=== PATIENT | male | born 1945 | race Caucasian/White ===

== ENCOUNTER 2016-10-09 20:55 | Inpatient (IN) | payer OTHER, MEDICAID ==
[~2016-10-09] VITALS: Ht 167.6 cm; Wt 108.2 kg
[2016-10-09 21:25] VITALS: BP 174/78; PULSE 67; RESP 20; Ht 167.6 cm; Wt 108.2 kg
[2016-10-09 21:34] VITALS: PULSE 69
[2016-10-10] VITALS (15 sets, daily range): BP systolic 126–164; BP diastolic 60–76; PULSE 50–67; RESP 18–20
[2016-10-10] MEDS ORDERED: BISACODYL (EC) 5 MG TAB PO PRN (02:00)
[2016-10-10] MEDS: FAMOTIDINE 20 MG TAB PO SCH ×3 (02:00→20:50)
[2016-10-10] MEDS ORDERED: ACETAMINOPHEN 325 MG TAB PO PRN (02:00)
[2016-10-10] MEDS ORDERED: ONDANSETRON 4 MG INJ IV PRN (02:00)
[2016-10-10] MEDS ORDERED: DOCUSATE SODIUM 100 MG CAP PO PRN (02:00)
[2016-10-10] MEDS ORDERED: NACL 0.9% 3 ML SYG IV SCH (02:00)
[2016-10-10 04:22] LABS: ADD SCAN DIFF NO
[2016-10-10 04:27] LABS: BASOPHILS % 0.1 % (0.0-2.0); HEMATOCRIT 39.4 % (42.0-52.0); HEMOGLOBIN 12.9 g/dl (14.0-18.0); LYMPHOCYTES # 0.6 10^3/ul (0.8-2.9); LYMPHOCYTES % 6.2 % (15.0-51.0); MEAN CORPUSCULAR HEMOGLOBIN 30.1 pg (29.0-33.0); MEAN CORPUSCULAR HGB CONC 32.7 g/dl (32.0-37.0); MEAN CORPUSCULAR VOLUME 91.8 fl (82.0-101.0); MEAN PLATELET VOLUME 11.7 fl (7.4-10.4); MONOCYTE # 0.1 10^3/ul (0.3-0.9); MONOCYTES % 0.8 % (0.0-11.0); NEUTROPHIL # 9.4 10^3/ul (1.6-7.5); NEUTROPHILS % 92.5 % (39.0-77.0); PLATELET COUNT 153 10^3/UL (140-415); RED BLOOD COUNT 4.29 10^6/ul (4.70-6.10); RED CELL DISTRIBUTION WIDTH 13.4 % (11.5-14.5); WHITE BLOOD COUNT 10.2 10^3/ul (4.8-10.8)
[2016-10-10] MEDS: ALBUTEROL/IPRATROPIUM (NEB) 3 ML AMP HHN SCH ×5 (05:00→20:59)
[2016-10-10 05:06] LABS: ALBUMIN 3.9 g/dl (3.3-4.9); ALBUMIN/GLOBULIN RATIO 1.34; CALCIUM 9.3 mg/dl (8.4-10.2); CREATININE 0.56 mg/dl (0.61-1.24); POTASSIUM 4.4 mmol/L (3.5-5.1); TOTAL PROTEIN 6.8 g/dl (6.1-8.1)
[2016-10-10 05:07] LABS: TROPONIN-I 0.017 ng/ml (0.00-0.12)
[2016-10-10 05:08] LABS: CK-MB 1.09 ng/ml (0.0-2.4)
[2016-10-10] MEDS ORDERED: FUROSEMIDE 40 MG INJ IV SCH (06:00)
--- NOTE | 2016-10-10 06:33 | HP ---
Date/Time of Note Date/Time of Note DATE: 10/10/16 TIME: 06:15 Assessment/Plan VTE Prophylaxis VTE Prophylaxis Intervention: LMWH Lines/Catheters IV Catheter Type (from [facility]): [place] [employer] line still needed: No Urinary Cath still in place: No Assessment/Plan Chief Complaint/Hosp Course This is a 71-year-old male being admitted to the telemetry floor for: #1 acute respiratory distress: CHF versus COPD. At the current time the patient's BNP is 329 I am not entirely convinced that this is an acute new onset CHF exacerbation however as there is blunting of the costophrenic angles we will do CHF workup. He did receive a dose of Lasix at the transferring facility. I will put him on Lasix 40 mg twice daily for today monitor I's and O 's. I will also give him duonebs every 4 hours. He did receive apparently a bolus dose of steroids at the facility. At the current time as I do appreciate good air movement and no wheezing, I will hold off on any further prednisone at this current time. Echocardiogram will be ordered. And cardiology consult. #2 COPD: DuoNeb every 4 hours. Supplemental oxygen to maintain O2 sats above 90. Reinstitute home medications once patient provide us with his home medication list #3 diabetes mellitus: Patient is not on any insulin. Will put on a insulin sliding scale. Check a hemoglobin A1c.Reinstitute home medications once patient provide us with his home medication list #4 BPH: Stable.Reinstitute home medications once patient provide us with his home medication list #5 sleep apnea: I have asked him to obtain the settings were CPAP so that we can provide him this overnight. #6 DVT and GI prophylaxis: Lovenox, H2 blockers Further management as per the clinical course Problems: HPI/ROS Admit Date/Time Admit Date/Time October 09, 2016 at 21:12 Hx of Present Illness This is a 8-year-old male who was transferred from [facility]. Patient has a history of COPD, hypertension, hyperlipidemia who presented to [facility] on 10/09/16 at 11:52 AM for worsening dyspnea for the last 3-4 days. His dyspnea was gradual in onset with a cough. Denied any fevers or chills or chest pain or lower extremity swelling. He was using albuterol at home but was not helping. Denied any sick contacts and he did not have any recent travel. Allergies: NKDA Medications: Patient does not recall his medication at this time he will obtain the medications for us. PMH/Family/Social Past Medical History COPD, hypertension, diabetes mellitus [id number], BPH, sleep apnea Past Surgical History Neck cyst removal Family History Significant Family History: diabetes (Mom), hypertension (Mom) Social History Alcohol Use: other (He did use alcohol in the past however he has not drank for over 21 years) Smoking Status: Former smoker (2 packs per day 50 years he quit 3 months ago) Drug Use: none Exam/Review of Systems Vital Signs Vitals Vital Signs Date Time Temp Pulse Resp B/P Pulse Ox O2 Delivery O2 Flow Rate FiO2 10/10/16 04:42 98.5 57 18 156/71 99 10/09/16 21:25 Room Air 10/09/16 21:25 2.0 Exam Exam General: Patient sitting in bed without his supplemental oxygen and in some mild distress. Upon putting the nasal cannula back on patient appeared more comfortable. The patient is alert oriented -3 HEENT: Atraumatic, normocephalic. The pupils are equal, round and reactive. Extraocular motor are intact Neck: Supple with full range of motion. No rigidity or meningismus Chest: Nontender Lungs: Clear to auscultation bilaterally, increased work of breathing, not requiring use of accessory muscles, coarse breath sounds at the bases, good aeration Heart: Normal S1-S2, Regular rhythm and rate. Abdomen: Soft , nontender, nondistended , bowel sounds are present. No guarding no rebound tenderness , No masses or organomegaly. No costovertebral temporal angle mass Extremities: Normal to inspection, no edema no cyanosis Neurologic: Normal mental status, speech normal, cranial nerves II through XII are intact, motor and sensory are intact, no focal weakness Additional Comments Patient's BMP at the outside facility: Showed sodium of 138, potassium of 4.5, chloride 102, CO2 27, BUN 14, creatinine 0.67, GFR of 97, calcium 9.1, and glucose of 141. BNP was 326. Initial troponin was negative 1. Chest x-ray Showed blunting of the costophrenic angles. Please see radiology report for further information Labs Result Diagram: 10/10/16 0335 10/10/16 0333 Medications Medications Current Medications Ondansetron HCl (Zofran Inj) 4 mg Q6H PRN IV NAUSEA AND/OR VOMITING; Start 10/10 at 02:00 Acetaminophen (Tylenol Tab) 650 mg Q6H PRN PO PAIN LEVEL 1-3 OR FEVER; Start at 02:00 Docusate Sodium (Colace) 100 mg Q12H PRN PO CONSTIPATION; Start 10/10/16 at 02: 00 Bisacodyl (Dulcolax) 5 mg DAILY PRN PO CONSTIPATION; Start 10/10/16 at 02:00 Famotidine (Pepcid) 20 mg Q12 PO ; Start 10/10/16 at 02:00 Enoxaparin Sodium (Lovenox) 40 mg DAILY SC ; Start 10/10/16 at 09:00 Diagnostic Test (Pha) (Accu-Chek) 1 ea 02 XX ; Start 10/11/16 at 02:00 LIZETH KAMARA October 10, 2016 06:31
[2016-10-10] MEDS ORDERED: GLUCAGON 1 MG INJ IM PRN (07:00)
[2016-10-10] MEDS ORDERED: GLUCOSE GEL 15 GRAM TUBE PO PRN ×2 (07:00)
[2016-10-10] MEDS ORDERED: DEXTROSE 50% 50 ML SYRINGE IV PRN ×2 (07:00)
[2016-10-10] MEDS ORDERED: GLUCOSE GEL 15 GRAM TUBE BUCCAL PRN (07:00)
[2016-10-10] MEDS ORDERED: INSULIN ASPART [NOVOLOG] 3 ML PEN SC SCH (08:00)
[2016-10-10] MEDS: ENOXAPARIN 40 MG/0.4 ML SYG SC SCH (08:29)
[2016-10-10] MEDS: INSULIN ASPART [NOVOLOG] 3 ML PEN SC SCH ×4 (08:30→21:06)
[2016-10-10 10:07] LABS: CHOL/HDL RATIO 3.1 RATIO
[2016-10-10 10:21] LABS: CREATINE KINASE 82 IU/L (23-200)
[2016-10-10 10:33] LABS: CK-MB 1.19 ng/ml (0.0-2.4)
[2016-10-10 10:37] LABS: TROPONIN-I < 0.012 ng/ml (0.00-0.12)
--- NOTE | 2016-10-10 11:15 | CONS ---
Date/Time of Note Date/Time of Note DATE: 10/10/16 TIME: 11:10 Assessment/Plan Assessment/Plan Additional Assessment/Plan Assessment recommendations; 1. Patient admitted for shortness of breath ; possibly could be multifactorial possibly from underlying sleep apnea versus COPD versus CHF. Obtain ABG, obtain a 2D echocardiogram, obtain a chest x-ray. Meanwhile continue current treatment. Once these studies are done I will reevaluate the patient. Consultation Date/Type/Reason Admit Date/Time October 09, 2016 at 21:12 Date of Consultation: October 10, 2016 Type of Consultation: Pulmonary Reason for Consultation Pulmonary consultation obtained for evaluation of shortness of breath. History presenting any; patient is a pleasant 71-year-old white male who was transferred from another hospital where he presented to the ER with complaints of shortness of breath going on for the last several days which is brought on mainly by exertion. Patient also been having scant cough without any sputum production. Patient also did complain of some wheezing earlier with interval resolution. The patient this is his first admission to the hospital. He denies any underlying coronary artery disease. Or any history of congestive heart failure. He denies any depression, high fever, chills. Any body aches or myalgias. Past medical history; 1. History of COPD possibly 2. Diabetes. 3. Questionable CHF. 4. BPH. 5. Diabetes. 6. No history of any surgeries. Medications; were reviewed. Allergies; none. Social history; patient quit smoking 3 months ago has a [id number]-ljro-year smoking history. Most of alcohol abuse. Family history; patient is single. 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 Review of systems; denies any headache, visual changes, sinus symptoms. Any seizures. Denies any sore throat, dysphagia, odynophagia. Any chest pain, angina. Breath or dyspnea on exertion. Complains of occasional wheezing. Complains of very scant cough. Denies any sputum production hemoptysis. Denies any abdominal pain, nausea vomiting. Any melena, hematochezia. Does complain of urgency of urination. Does complain of snoring, daytime sleepiness. Has gained weight. Denies any skin changes. General exam; elderly male, awake alert currently in no distress. Social History Alcohol Use: other (He did use alcohol in the past however he has not drank for over 21 years) Smoking Status: Former smoker (2 packs per day 50 years he quit 3 months ago) Drug Use: none Exam/Review of Systems Vital Signs Vitals Vital Signs Date Time Temp Pulse Resp B/P Pulse Ox O2 Delivery O2 Flow Rate FiO2 10/10/16 09:00 54 145/65 10/10/16 08:37 20 99 Nasal Cannula 1.0 10/10/16 08:02 98.2 Intake and Output 10/09/16 10/09/16 10/10/16 15:00 23:00 07:00 Intake Total 500 ml Output Total 350 ml Balance 150 ml Exam HEENT exam is; supple neck, JVD difficult to see because of short neck. Patient bilateral intraocular lens implants. He is edentulous. Pharynx is clear. No neck bruits. No thyromegaly. Chest examination; diminished but clear vessel. No added sound. S1-S2 audible , no murmurs. Regular rhythm. Abdomen examination; protuberant, nontender. No organomegaly. Bowel sounds audible. Extremity examination; no peripheral edema. Pulses 1+ bilaterally. No clubbing. [employer] examination; cranial nerves are intact. No focal deficit. Results Result Diagram: 10/10/16 0335 10/10/16 0333 Results 24 hrs Laboratory Tests Test 10/10/16 03:33 10/10/16 03:35 10/10/16 08:01 10/10/16 09:50 Sodium Level 134 L Potassium Level 4.4 Chloride Level 101 Carbon Dioxide Level 27 Anion Gap 10 Blood Urea Nitrogen 19 Creatinine 0.56 L Glucose Level 193 Calcium Level 9.3 Total Bilirubin 1.0 Direct Bilirubin 0.00 Indirect Bilirubin 1.0 Aspartate Amino Transf (AST/SGOT) 19 Alanine Aminotransferase (ALT/SGPT) 23 Alkaline Phosphatase 59 Total Protein 6.8 Albumin 3.9 Globulin 2.90 Albumin/Globulin Ratio 1.34 Triglycerides Level 61 Cholesterol Level 161 LDL Cholesterol, Calculated 98 HDL Cholesterol 51 Cholesterol/HDL Ratio 3.1 Free Thyroxine Index 2.79 Thyroxine (T4) 9.0 Triiodothyronine (T3) Uptake 31.0 White Blood Count 10.2 Red Blood Count 4.29 L Hemoglobin 12.9 L Hematocrit 39.4 L Mean Corpuscular Volume 91.8 Mean Corpuscular Hemoglobin 30.1 Mean Corpuscular Hemoglobin Concent 32.7 Red Cell Distribution Width 13.4 Platelet Count 153 Mean Platelet Volume 11.7 H Neutrophils % 92.5 H Lymphocytes % 6.2 L Monocytes % 0.8 Eosinophils % 0.0 Basophils % 0.1 Nucleated Red Blood Cells % 0.0 Neutrophils # 9.4 H Lymphocytes # 0.6 L Monocytes # 0.1 L Eosinophils # 0.0 Basophils # 0.0 Nucleated Red Blood Cells # 0.0 Hemoglobin A1c 6.1 H Creatine Kinase 85 82 Creatine Kinase Index 1.3 1.5 Creatinine Kinase MB (Mass) 1.09 1.19 Troponin I 0.017 < 0.012 Thyroid Stimulating Hormone (TSH) 0.658 Bedside Glucose 153 Medications Medications Current Medications Ondansetron HCl (Zofran Inj) 4 mg Q6H PRN IV NAUSEA AND/OR VOMITING; Start 10/10 at 02:00 Acetaminophen (Tylenol Tab) 650 mg Q6H PRN PO PAIN LEVEL 1-3 OR FEVER; Start at 02:00 Docusate Sodium (Colace) 100 mg Q12H PRN PO CONSTIPATION; Start 10/10/16 at 02: 00 Bisacodyl (Dulcolax) 5 mg DAILY PRN PO CONSTIPATION; Start 10/10/16 at 02:00 Famotidine (Pepcid) 20 mg Q12 PO Last administered on 10/10/16 08:24; Admin Dose 20 MG; Start 10/10/16 at 02:00 Enoxaparin Sodium (Lovenox) 40 mg DAILY SC Last administered on 10/10/16 08:29 ; Admin Dose 40 MG; Start 10/10/16 at 09:00 Diagnostic Test (Pha) (Accu-Chek) 1 ea 02 XX ; Start 10/11/16 at 02:00 Miscellaneous Information 1 ea NOTE XX ; Start 10/10/16 at 07:00 Glucose (Glutose) 15 gm Q15M PRN PO DECREASED GLUCOSE; Start 10/10/16 at 07:00 Glucose (Glutose) 22.5 gm Q15M PRN PO DECREASED GLUCOSE; Start 10/10/16 at 07:00 Dextrose (D50w Syringe) 25 ml Q15M PRN IV DECREASED GLUCOSE; Start 10/10/16 at 07:00 Dextrose (D50w Syringe) 50 ml Q15M PRN IV DECREASED GLUCOSE; Start 10/10/16 at 07:00 Glucagon (Glucagen) 1 mg Q15M PRN IM DECREASED GLUCOSE; Start 10/10/16 at 07:00 Glucose (Glutose) 15 gm Q15M PRN BUCCAL DECREASED GLUCOSE; Start 10/10/16 at 07: 00 TERESA BRENNAN October 10, 2016 11:15
--- NOTE | 2016-10-10 11:25 | CONS ---
Date/Time of Note Date/Time of Note DATE: 10/10/16 TIME: 11:20 Assessment/Plan Assessment/Plan Additional Assessment/Plan Shortness of breath COPD Hypertension Obesity -Patient with no significant volume overload on examination with no edema and no crackles on lung exam. Serial cardiac enzymes with no significant abnormalities. Will check echocardiogram. Would change diuretics to daily at the current time. Symptoms appear more likely secondary to primary pulmonary etiology. Consultation Date/Type/Reason Admit Date/Time October 09, 2016 at 21:12 Type of Consultation: cv Reason for Consultation Shortness of breath Hx of Present Illness This is a 71-year-old male with past medical history of hypertension, COPD who presents with worsening shortness of breath. Patient with symptoms progressing over the past 2-3 years but worse over the past month. Symptoms of shortness of breath or with exertion and improved at rest. He denies lower extremity edema, chest pain, dizziness, palpitations. He recently had GI illness of diarrhea last week and since then his shortness of breath has worsened. He does complain of cough which is minimally productive. Because of worsening symptoms yesterday, he went to the emergency room for evaluation and care. He was transferred to our facility secondary to insurance reasons. 12 point review of systems was performed with all pertinent positives and negatives mentioned above and all else is negative Past Medical History COPD Medical History: hypertension Past Surgical History Past Surgical Hx: no surgical history Family History Significant Family History: no pertinent family hx Social History Alcohol Use: other (He did use alcohol in the past however he has not drank for over 21 years) Smoking Status: Former smoker (2 packs per day 50 years he quit 3 months ago) Drug Use: none Other Social History [facility] Exam/Review of Systems Vital Signs Vitals Vital Signs Date Time Temp Pulse Resp B/P Pulse Ox O2 Delivery O2 Flow Rate FiO2 10/10/16 09:00 54 145/65 10/10/16 08:37 20 99 Nasal Cannula 1.0 10/10/16 08:02 98.2 Intake and Output 10/09/16 10/09/16 10/10/16 15:00 23:00 07:00 Intake Total 500 ml Output Total 350 ml Balance 150 ml Exam Sitting up in bed, no apparent distress Constitutional: alert, obese, oriented Head: normocephalic Neck: supple Respiratory: other (Coarse, distant breath sounds, no wheezing) Cardiovascular: other (S1-S2 heard), regular rate and rhythm Gastrointestinal: bowel sounds, non-tender, other (No guarding), soft Extremities: other (No edema or cyanosis) Results Result Diagram: 10/10/16 0335 10/10/16 0333 Results 24 hrs Laboratory Tests Test 10/10/16 03:33 10/10/16 03:35 10/10/16 08:01 10/10/16 09:50 Sodium Level 134 L Potassium Level 4.4 Chloride Level 101 Carbon Dioxide Level 27 Anion Gap 10 Blood Urea Nitrogen 19 Creatinine 0.56 L Glucose Level 193 Calcium Level 9.3 Total Bilirubin 1.0 Direct Bilirubin 0.00 Indirect Bilirubin 1.0 Aspartate Amino Transf (AST/SGOT) 19 Alanine Aminotransferase (ALT/SGPT) 23 Alkaline Phosphatase 59 Total Protein 6.8 Albumin 3.9 Globulin 2.90 Albumin/Globulin Ratio 1.34 Triglycerides Level 61 Cholesterol Level 161 LDL Cholesterol, Calculated 98 HDL Cholesterol 51 Cholesterol/HDL Ratio 3.1 Free Thyroxine Index 2.79 Thyroxine (T4) 9.0 Triiodothyronine (T3) Uptake 31.0 White Blood Count 10.2 Red Blood Count 4.29 L Hemoglobin 12.9 L Hematocrit 39.4 L Mean Corpuscular Volume 91.8 Mean Corpuscular Hemoglobin 30.1 Mean Corpuscular Hemoglobin Concent 32.7 Red Cell Distribution Width 13.4 Platelet Count 153 Mean Platelet Volume 11.7 H Neutrophils % 92.5 H Lymphocytes % 6.2 L Monocytes % 0.8 Eosinophils % 0.0 Basophils % 0.1 Nucleated Red Blood Cells % 0.0 Neutrophils # 9.4 H Lymphocytes # 0.6 L Monocytes # 0.1 L Eosinophils # 0.0 Basophils # 0.0 Nucleated Red Blood Cells # 0.0 Hemoglobin A1c 6.1 H Creatine Kinase 85 82 Creatine Kinase Index 1.3 1.5 Creatinine Kinase MB (Mass) 1.09 1.19 Troponin I 0.017 < 0.012 Thyroid Stimulating Hormone (TSH) 0.658 Bedside Glucose 153 Medications Medications Current Medications Ondansetron HCl (Zofran Inj) 4 mg Q6H PRN IV NAUSEA AND/OR VOMITING; Start 10/10 at 02:00 Acetaminophen (Tylenol Tab) 650 mg Q6H PRN PO PAIN LEVEL 1-3 OR FEVER; Start at 02:00 Docusate Sodium (Colace) 100 mg Q12H PRN PO CONSTIPATION; Start 10/10/16 at 02: 00 Bisacodyl (Dulcolax) 5 mg DAILY PRN PO CONSTIPATION; Start 10/10/16 at 02:00 Famotidine (Pepcid) 20 mg Q12 PO Last administered on 10/10/16 08:24; Admin Dose 20 MG; Start 10/10/16 at 02:00 Enoxaparin Sodium (Lovenox) 40 mg DAILY SC Last administered on 10/10/16 08:29 ; Admin Dose 40 MG; Start 10/10/16 at 09:00 Diagnostic Test (Pha) (Accu-Chek) 1 ea 02 XX ; Start 10/11/16 at 02:00 Miscellaneous Information 1 ea NOTE XX ; Start 10/10/16 at 07:00 Glucose (Glutose) 15 gm Q15M PRN PO DECREASED GLUCOSE; Start 10/10/16 at 07:00 Glucose (Glutose) 22.5 gm Q15M PRN PO DECREASED GLUCOSE; Start 10/10/16 at 07:00 Dextrose (D50w Syringe) 25 ml Q15M PRN IV DECREASED GLUCOSE; Start 10/10/16 at 07:00 Dextrose (D50w Syringe) 50 ml Q15M PRN IV DECREASED GLUCOSE; Start 10/10/16 at 07:00 Glucagon (Glucagen) 1 mg Q15M PRN IM DECREASED GLUCOSE; Start 10/10/16 at 07:00 Glucose (Glutose) 15 gm Q15M PRN BUCCAL DECREASED GLUCOSE; Start 10/10/16 at 07: 00 Procedures Procedures ECG done yesterday at 1201 100 sinus rhythm at 61 bpm, QRS 118 ms, nonspecific STT wave abnormalities Khang Ba DO October 10, 2016 11:25
[2016-10-10 11:57] LABS: Allen Test ACCEPTAB; Arterial Base Excess 1.7 mmol/L (-3.0-3); Arterial COHb 0.5 % (0.0-3.0); Arterial Fraction of Oxyhgb 96.7 % (93.0-99.0); Arterial MetHb 0.2 % (0.0-1.5); Arterial Total Hemglobin 14.1 g/dl (12.0-18.0); MODE NASAL CANNULA
[2016-10-10] MEDS: AMLODIPINE 5 MG TAB PO SCH (12:17)
--- NOTE | 2016-10-10 13:17 | RADRPT ---
Echocardiogram Report Patient Name: ANÍBAL TIJERINA Gender: Male Date: 1945 Study Date: 10-Oct-2016 Spot Remover: [facility] Location: 5555 Ref. Physician: LIZETH KAMARA Quality: Good Procedures: Transthoracic echocardiogram with complete 2D, M-Mode, and doppler examination. Indications: new onset Atrial Fibrillation. 2D/M Mode Doppler Measurement Value Normal Ranges Measurement Value Normal Ranges LVIDd 2D 5.8 3.5 - 5.6 cm AV Peak Zak 1.5 m/sec LVIDs 2D 2.8 2.1 - 4.1 cm AV Peak PG 9.0 mmHg FS 2D 52.0 % LVOT Peak Zak 0.9 m/sec LVPWd 2D 1.0 0.6 - 1.1 cm LVOT Peak PG 3.0 mmHg IVSd 2D 1.0 0.6 - 1.1 cm MV E Peak Zak 0.9 m/sec IVS/LVPW 2D 1.0 MV A Peak Zak 0.5 m/sec AoR Diam 2D 2.8 2.0 - 3.7 cm MV E/A 1.8 LA/Ao 2D 2 0 - 1 MV Decel Time 232 msec EDV 2D 198.0 cm3 MV E/A 1.8 ESV 2D 22.0 cm3 TR Peak Zak 1.9 m/sec LA Dimen 2D 4.2 2.3 - 4.0 cm TR Peak PG 14.0 mmHg RVSP 29.0 mmHg Findings Left Ventricle: Normal left ventricular systolic function. Normal left ventricular cavity size. Normal left ventricular wall thickness. Ejection fraction is visually estimated at 60 %. Tissue Doppler/Mitral Doppler indices are consistent with pseudonormalization with mildly elevated left atrial pressure (Stage II diastolic dysfunction). Right Ventricle: Normal right ventricular size. Normal right ventricular systolic function. Left Atrium: There is mild enlargement of left atrium. Right Atrium: The right atrium is normal in size. Mitral Valve: Mitral valve leaflets appear mildly thickened. Mild mitral annular calcification. Mild mitral valve regurgitation. Aortic Valve: Normal appearance of the aortic valve. No significant aortic stenosis or insufficiency. Tricuspid Valve: Normal appearance of the tricuspid valve. Estimated peak PA systolic pressure 29 mmHg. There is trace tricuspid regurgitation. Pulmonic Valve: Normal pulmonic valve appearance. Pericardium: Normal pericardium with no significant pericardial effusion. Aorta: Normal aortic root. IVC: Dilated IVC without respiratory collapse consistent with elevated right atrial pressure. Conclusions 1.Normal left ventricular systolic function. Normal left ventricular cavity size. Normal left ventricular wall thickness. Ejection fraction is visually estimated at 60 %. Tissue Doppler/Mitral Doppler indices are consistent with pseudonormalization with mildly elevated left atrial pressure (Stage II diastolic dysfunction). 2.Normal right ventricular size. Normal right ventricular systolic function. 3.There is mild enlargement of left atrium. 4.The right atrium is normal in size. 5.Mild mitral valve regurgitation. 6.No significant valvular stenosis or regurgitation seen of remaining visualized valves. 7.Normal pericardium with no significant pericardial effusion. Electronically Signed By: Khang Ba 10-Oct-2016 13:16:27 -0700 Patient Name: ANÍBAL TIJERINA Study Date: 10-Oct-2016 [id number]
--- NOTE | 2016-10-10 18:01 | RADRPT ---
PROCEDURE: XR Chest. CLINICAL INDICATION: Shortness of breath. TECHNIQUE: Single frontal view. COMPARISON: None. FINDINGS: There is mild atelectasis at the lung bases. The lungs are otherwise clear. The heart is enlarged. There is calcification in the aorta consistent with atherosclerosis. There is no pleural effusion. There is no pneumothorax. IMPRESSION: 1. Mild atelectasis at the lung bases. 2. Cardiomegaly and atherosclerosis. 3. Otherwise unremarkable study. RPTAT: QQ .Mark Del Cid MD, MD Date Time Electronically viewed and signed by .Mark Del Cid MD, MD on 10/10/2016 18:01 .R/
--- NOTE | 2016-10-10 18:02 | RADRPT ---
PROCEDURE: XR Chest. CLINICAL INDICATION: Shortness of breath. TECHNIQUE: Single lateral view. COMPARISON: Prior study done earlier the same day. FINDINGS: Atelectasis at the lung bases, cardiomegaly, and atherosclerosis are once again noted. There is no pleural effusion. IMPRESSION: 1. Lateral view of the chest confirms the findings on the frontal view. RPTAT: QQ .Mark Del Cid MD, MD Date Time Electronically viewed and signed by .Mark Del Cid MD, MD on 10/10/2016 18:01 .R/
[2016-10-11] VITALS (16 sets, daily range): BP systolic 124–150; BP diastolic 58–67; PULSE 47–68; RESP 13–19
[2016-10-11] MEDS: ALBUTEROL/IPRATROPIUM (NEB) 3 ML AMP HHN SCH ×6 (01:00→20:48)
[2016-10-11] MEDS: ACCU-CHEK XX SCH (02:00)
[2016-10-11] MEDS ORDERED: ACCU-CHEK XX SCH (02:00)
[2016-10-11] MEDS: INSULIN ASPART [NOVOLOG] 3 ML PEN SC SCH ×4 (07:50→21:00)
[2016-10-11 08:29] LABS: ADD SCAN DIFF NO
[2016-10-11] MEDS: FUROSEMIDE 40 MG INJ IV SCH (08:41)
[2016-10-11] MEDS: AMLODIPINE 5 MG TAB PO SCH (08:41)
[2016-10-11] MEDS: FAMOTIDINE 20 MG TAB PO SCH ×2 (08:41→21:10)
[2016-10-11] MEDS: ENOXAPARIN 40 MG/0.4 ML SYG SC SCH (08:42)
[2016-10-11 08:54] LABS: BASOPHILS % 0.3 % (0.0-2.0); EOSINOPHILS % 0.3 % (0.0-7.0); HEMATOCRIT 38.1 % (42.0-52.0); HEMOGLOBIN 12.4 g/dl (14.0-18.0); LYMPHOCYTES # 2.8 10^3/ul (0.8-2.9); LYMPHOCYTES % 21.3 % (15.0-51.0); MEAN CORPUSCULAR HEMOGLOBIN 30.5 pg (29.0-33.0); MEAN CORPUSCULAR HGB CONC 32.5 g/dl (32.0-37.0); MEAN CORPUSCULAR VOLUME 93.8 fl (82.0-101.0); MEAN PLATELET VOLUME 11.9 fl (7.4-10.4); MONOCYTE # 0.9 10^3/ul (0.3-0.9); MONOCYTES % 6.7 % (0.0-11.0); NEUTROPHIL # 9.3 10^3/ul (1.6-7.5); PLATELET COUNT 155 10^3/UL (140-415); RED BLOOD COUNT 4.06 10^6/ul (4.70-6.10); RED CELL DISTRIBUTION WIDTH 13.5 % (11.5-14.5); WHITE BLOOD COUNT 13.1 10^3/ul (4.8-10.8)
[2016-10-11 09:04] LABS: CREATININE 0.6 mg/dl (0.61-1.24); POTASSIUM 4.1 mmol/L (3.5-5.1)
--- NOTE | 2016-10-11 12:06 | CONS ---
Date/Time of Note Date/Time of Note DATE: 10/11/16 TIME: 12:04 Assessment/Plan Assessment/Plan Additional Assessment/Plan Chest x-ray was reviewed from yesterday which is essentially unremarkable. ABG also was reviewed which is not showing any evidence of hypoxemia or hypercapnia. Echo cardiogram is essentially normal as well. Assessment recommendations; next 1. Patient admitted for COPD exacerbation and bronchitis. 2. History of diabetes and BPH. Continue current treatment. Add oral Zithromax 5 mg daily for 5 days. Patient would likely would need to have a sleep study on outpatient basis. Consultation Date/Type/Reason Admit Date/Time October 09, 2016 at 21:12 Initial Consult Date 10/10/16 Type of Consultation: Pulmonary 24 HR Interval Summary Free Text/Dictation Patient condition is stable. Patient is reporting decreased shortness of breath. Still complains of chest congestion and clear to very slightly yellow sputum production which according to him can be copious at times. Denies angina , fever chills chest pain. General exam; elderly male, awake alert currently in no distress. Exam/Review of Systems Vital Signs Vitals Vital Signs Date Time Temp Pulse Resp B/P Pulse Ox O2 Delivery O2 Flow Rate FiO2 10/11/16 11:53 97.4 61 18 150/67 96 10/11/16 08:52 21 10/10/16 21:01 Nasal Cannula 1.0 Intake and Output 10/10/16 10/10/16 10/11/16 15:00 23:00 07:00 Intake Total 900 ml Output Total 1300 ml 450 ml Balance -400 ml -450 ml Exam HEENT examination; supple neck, no JVD. No lymphadenopathy. Midline trachea. No thyromegaly. Pharynx is clear. Patient is edentulous. Chest examined; diminished but clear vessel. S1-S2 audible, no murmurs. Regular rhythm. Abdomen examination; soft, nondistended. Nontender. Protuberant. Bowel sounds audible. Extremity examination; no peripheral edema. 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 Results Result Diagram: 10/11/16 0808 10/11/16 0808 Results 24 hrs Laboratory Tests Test 10/10/16 16:51 10/10/16 20:49 10/11/16 03:31 10/11/16 07:47 Bedside Glucose 220 183 128 124 Test 10/11/16 08:08 White Blood Count 13.1 #H Red Blood Count 4.06 L Hemoglobin 12.4 L Hematocrit 38.1 L Mean Corpuscular Volume 93.8 Mean Corpuscular Hemoglobin 30.5 Mean Corpuscular Hemoglobin Concent 32.5 Red Cell Distribution Width 13.5 Platelet Count 155 Mean Platelet Volume 11.9 H Neutrophils % 71.0 Lymphocytes % 21.3 Monocytes % 6.7 Eosinophils % 0.3 Basophils % 0.3 Nucleated Red Blood Cells % 0.0 Neutrophils # 9.3 H Lymphocytes # 2.8 Monocytes # 0.9 Eosinophils # 0.0 Basophils # 0.0 Nucleated Red Blood Cells # 0.0 Sodium Level 135 Potassium Level 4.1 Chloride Level 101 Carbon Dioxide Level 30 Anion Gap 8 Blood Urea Nitrogen 25 H Creatinine 0.60 L Glucose Level 120 # Calcium Level 9.0 Magnesium Level 2.0 Medications Medications Current Medications Ondansetron HCl (Zofran Inj) 4 mg Q6H PRN IV NAUSEA AND/OR VOMITING; Start 10/10 at 02:00 Acetaminophen (Tylenol Tab) 650 mg Q6H PRN PO PAIN LEVEL 1-3 OR FEVER; Start at 02:00 Docusate Sodium (Colace) 100 mg Q12H PRN PO CONSTIPATION; Start 10/10/16 at 02: 00 Bisacodyl (Dulcolax) 5 mg DAILY PRN PO CONSTIPATION; Start 10/10/16 at 02:00 Famotidine (Pepcid) 20 mg Q12 PO Last administered on 10/11/16 08:41; Admin Dose 20 MG; Start 10/10/16 at 02:00 Enoxaparin Sodium (Lovenox) 40 mg DAILY SC Last administered on 10/11/16 08:42 ; Admin Dose 40 MG; Start 10/10/16 at 09:00 Diagnostic Test (Pha) (Accu-Chek) 1 ea 02 XX ; Start 10/11/16 at 02:00 Miscellaneous Information 1 ea NOTE XX ; Start 10/10/16 at 07:00 Glucose (Glutose) 15 gm Q15M PRN PO DECREASED GLUCOSE; Start 10/10/16 at 07:00 Glucose (Glutose) 22.5 gm Q15M PRN PO DECREASED GLUCOSE; Start 10/10/16 at 07:00 Dextrose (D50w Syringe) 25 ml Q15M PRN IV DECREASED GLUCOSE; Start 10/10/16 at 07:00 Dextrose (D50w Syringe) 50 ml Q15M PRN IV DECREASED GLUCOSE; Start 10/10/16 at 07:00 Glucagon (Glucagen) 1 mg Q15M PRN IM DECREASED GLUCOSE; Start 10/10/16 at 07:00 Glucose (Glutose) 15 gm Q15M PRN BUCCAL DECREASED GLUCOSE; Start 10/10/16 at 07: 00 Furosemide (Lasix) 40 mg DAILY IV Last administered on 10/11/16 08:41; Admin Dose 40 MG; Start 10/11/16 at 09:00 Amlodipine Besylate (Norvasc) 5 mg DAILY PO Last administered on 10/11/16 08:41 ; Admin Dose 5 MG; Start 10/10/16 at 11:30 TERESA BRENNAN October 11, 2016 12:06
--- NOTE | 2016-10-11 14:10 | RADRPT ---
Vent Rate: 55 bpm RR Interval: 0 msec GA Interval: 162 msec QRS Duration: 106 msec QT Interval: 522 msec QTC Interval: 499 msec P-R-T [place]: 59 - 86 - 85 degrees Sinus bradycardia Prolonged QT Abnormal ECG Electronically Signed By: Shamir Downs [id number]
[2016-10-11] MEDS: AZITHROMYCIN 250 MG TAB PO SCH (14:39)
--- NOTE | 2016-10-11 15:11 | PN ---
Date/Time of Note Date/Time of Note DATE: 10/11/16 TIME: 15:08 Assessment/Plan VTE Prophylaxis VTE Prophylaxis Intervention: LMWH Lines/Catheters IV Catheter Type (from Nrs): Saline Lock Urinary Cath still in place: No Assessment/Plan Chief Complaint/Hosp Course #1 Acute respiratory distress secondary to COPD exacerbation Pulmonology consultation appreciated, chest x-ray and ABG are unremarkable Continue antibiotics and DuoNeb Echo shows a normal EF #2 Prediabetes Lifestyle changes will be advised #3. BPH #4. Obesity with obstructive sleep apnea Patient now on BiPAP overnight, will need outpatient sleep study DVT and GI prophylaxis: Lovenox, H2 blockers Discharge planning: Likely DC in a.m. Problems: Subjective 24 Hr Interval Summary Respiratory: shortness of breath Exam/Review of Systems Vital Signs Vitals Vital Signs Date Time Temp Pulse Resp B/P Pulse Ox O2 Delivery O2 Flow Rate FiO2 10/11/16 14:07 2.0 10/11/16 14:05 66 22 96 Nasal Cannula 10/11/16 11:53 97.4 150/67 10/11/16 08:52 21 Intake and Output 10/10/16 10/10/16 10/11/16 15:00 23:00 07:00 Intake Total 900 ml Output Total 1300 ml 450 ml Balance -400 ml -450 ml Exam Constitutional: alert Respiratory: clear to auscultation Cardiovascular: regular rate and rhythm Gastrointestinal: soft, No distended Musculoskeletal: nl extremities to inspection Results Result Diagram: 10/11/16 0808 10/11/16 0808 Results 24 hrs Laboratory Tests Test 10/10/16 16:51 10/10/16 20:49 10/11/16 03:31 10/11/16 07:47 Bedside Glucose 220 183 128 124 Test 10/11/16 08:08 10/11/16 12:37 White Blood Count 13.1 #H Red Blood Count 4.06 L Hemoglobin 12.4 L Hematocrit 38.1 L Mean Corpuscular Volume 93.8 Mean Corpuscular Hemoglobin 30.5 Mean Corpuscular Hemoglobin Concent 32.5 Red Cell Distribution Width 13.5 Platelet Count 155 Mean Platelet Volume 11.9 H Neutrophils % 71.0 Lymphocytes % 21.3 Monocytes % 6.7 Eosinophils % 0.3 Basophils % 0.3 Nucleated Red Blood Cells % 0.0 Neutrophils # 9.3 H Lymphocytes # 2.8 Monocytes # 0.9 Eosinophils # 0.0 Basophils # 0.0 Nucleated Red Blood Cells # 0.0 Sodium Level 135 Potassium Level 4.1 Chloride Level 101 Carbon Dioxide Level 30 Anion Gap 8 Blood Urea Nitrogen 25 H Creatinine 0.60 L Glucose Level 120 # Calcium Level 9.0 Magnesium Level 2.0 Bedside Glucose 135 Medications Medications Current Medications Ondansetron HCl (Zofran Inj) 4 mg Q6H PRN IV NAUSEA AND/OR VOMITING; Start 10/10 at 02:00 Acetaminophen (Tylenol Tab) 650 mg Q6H PRN PO PAIN LEVEL 1-3 OR FEVER; Start at 02:00 Docusate Sodium (Colace) 100 mg Q12H PRN PO CONSTIPATION; Start 10/10/16 at 02: 00 Bisacodyl (Dulcolax) 5 mg DAILY PRN PO CONSTIPATION; Start 10/10/16 at 02:00 Famotidine (Pepcid) 20 mg Q12 PO Last administered on 10/11/16 08:41; Admin Dose 20 MG; Start 10/10/16 at 02:00 Enoxaparin Sodium (Lovenox) 40 mg DAILY SC Last administered on 10/11/16 08:42 ; Admin Dose 40 MG; Start 10/10/16 at 09:00 Diagnostic Test (Pha) (Accu-Chek) 1 ea 02 XX ; Start 10/11/16 at 02:00 Miscellaneous Information 1 ea NOTE XX ; Start 10/10/16 at 07:00 Glucose (Glutose) 15 gm Q15M PRN PO DECREASED GLUCOSE; Start 10/10/16 at 07:00 Glucose (Glutose) 22.5 gm Q15M PRN PO DECREASED GLUCOSE; Start 10/10/16 at 07:00 Dextrose (D50w Syringe) 25 ml Q15M PRN IV DECREASED GLUCOSE; Start 10/10/16 at 07:00 Dextrose (D50w Syringe) 50 ml Q15M PRN IV DECREASED GLUCOSE; Start 10/10/16 at 07:00 Glucagon (Glucagen) 1 mg Q15M PRN IM DECREASED GLUCOSE; Start 10/10/16 at 07:00 Glucose (Glutose) 15 gm Q15M PRN BUCCAL DECREASED GLUCOSE; Start 10/10/16 at 07: 00 Furosemide (Lasix) 40 mg DAILY IV Last administered on 10/11/16 08:41; Admin Dose 40 MG; Start 10/11/16 at 09:00 Amlodipine Besylate (Norvasc) 5 mg DAILY PO Last administered on 10/11/16 08:41 ; Admin Dose 5 MG; Start 10/10/16 at 11:30 Azithromycin (Zithromax) 500 mg DAILY PO Last administered on 10/11/16 14:39; Admin Dose 500 MG; Start 10/11/16 at 14:00 JUDITH LOUIE October 11, 2016 15:11
--- NOTE | 2016-10-11 17:29 | CONS ---
Date/Time of Note Date/Time of Note DATE: 10/11/16 TIME: 17:27 Assessment/Plan Assessment/Plan Additional Assessment/Plan Shortness of breath Preserved ejection fraction COPD Mild mitral valve regurgitation Hypertension Obesity -Patient symptoms appear secondary to pulmonary etiology. Would change Lasix to p.o. with start low-dose GARRETT inhibitor for afterload reduction given mitral regurgitation. Aspirin therapy if no contraindication. Continue pulmonary care. Consultation Date/Type/Reason Admit Date/Time October 09, 2016 at 21:12 Initial Consult Date 10/10/16 Type of Consultation: cv 24 HR Interval Summary Free Text/Dictation Shortness of breath is the same, complaining of increased cough which is productive. Denies chest pain Exam/Review of Systems Vital Signs Vitals Vital Signs Date Time Temp Pulse Resp B/P Pulse Ox O2 Delivery O2 Flow Rate FiO2 10/11/16 17:08 70 20 96 Nasal Cannula 1.0 10/11/16 16:01 98.1 131/60 10/11/16 08:52 21 Intake and Output 10/10/16 10/10/16 10/11/16 15:00 23:00 07:00 Intake Total 900 ml Output Total 1300 ml 450 ml Balance -400 ml -450 ml Exam No apparent distress Constitutional: alert, obese, oriented Head: normocephalic Respiratory: other (Coarse breath sounds bilaterally, no wheezing) Cardiovascular: other (S1-S2 heard), regular rate and rhythm Gastrointestinal: bowel sounds, non-tender, soft Extremities: other (No significant edema) Results Result Diagram: 10/11/16 0808 10/11/16 0808 Results 24 hrs Laboratory Tests Test 10/10/16 20:49 10/11/16 03:31 10/11/16 07:47 10/11/16 08:08 Bedside Glucose 183 128 124 White Blood Count 13.1 #H Red Blood Count 4.06 L Hemoglobin 12.4 L Hematocrit 38.1 L Mean Corpuscular Volume 93.8 Mean Corpuscular Hemoglobin 30.5 Mean Corpuscular Hemoglobin Concent 32.5 Red Cell Distribution Width 13.5 Platelet Count 155 Mean Platelet Volume 11.9 H Neutrophils % 71.0 Lymphocytes % 21.3 Monocytes % 6.7 Eosinophils % 0.3 Basophils % 0.3 Nucleated Red Blood Cells % 0.0 Neutrophils # 9.3 H Lymphocytes # 2.8 Monocytes # 0.9 Eosinophils # 0.0 Basophils # 0.0 Nucleated Red Blood Cells # 0.0 Sodium Level 135 Potassium Level 4.1 Chloride Level 101 Carbon Dioxide Level 30 Anion Gap 8 Blood Urea Nitrogen 25 H Creatinine 0.60 L Glucose Level 120 # Calcium Level 9.0 Magnesium Level 2.0 Test 10/11/16 12:37 10/11/16 17:16 Bedside Glucose 135 130 Medications Medications Current Medications Ondansetron HCl (Zofran Inj) 4 mg Q6H PRN IV NAUSEA AND/OR VOMITING; Start 10/10 at 02:00 Acetaminophen (Tylenol Tab) 650 mg Q6H PRN PO PAIN LEVEL 1-3 OR FEVER; Start at 02:00 Docusate Sodium (Colace) 100 mg Q12H PRN PO CONSTIPATION; Start 10/10/16 at 02: 00 Bisacodyl (Dulcolax) 5 mg DAILY PRN PO CONSTIPATION; Start 10/10/16 at 02:00 Famotidine (Pepcid) 20 mg Q12 PO Last administered on 10/11/16 08:41; Admin Dose 20 MG; Start 10/10/16 at 02:00 Enoxaparin Sodium (Lovenox) 40 mg DAILY SC Last administered on 10/11/16 08:42 ; Admin Dose 40 MG; Start 10/10/16 at 09:00 Diagnostic Test (Pha) (Accu-Chek) 1 ea 02 XX ; Start 10/11/16 at 02:00 Miscellaneous Information 1 ea NOTE XX ; Start 10/10/16 at 07:00 Glucose (Glutose) 15 gm Q15M PRN PO DECREASED GLUCOSE; Start 10/10/16 at 07:00 Glucose (Glutose) 22.5 gm Q15M PRN PO DECREASED GLUCOSE; Start 10/10/16 at 07:00 Dextrose (D50w Syringe) 25 ml Q15M PRN IV DECREASED GLUCOSE; Start 10/10/16 at 07:00 Dextrose (D50w Syringe) 50 ml Q15M PRN IV DECREASED GLUCOSE; Start 10/10/16 at 07:00 Glucagon (Glucagen) 1 mg Q15M PRN IM DECREASED GLUCOSE; Start 10/10/16 at 07:00 Glucose (Glutose) 15 gm Q15M PRN BUCCAL DECREASED GLUCOSE; Start 10/10/16 at 07: 00 Furosemide (Lasix) 40 mg DAILY IV Last administered on 10/11/16 08:41; Admin Dose 40 MG; Start 10/11/16 at 09:00 Amlodipine Besylate (Norvasc) 5 mg DAILY PO Last administered on 10/11/16 08:41 ; Admin Dose 5 MG; Start 10/10/16 at 11:30 Azithromycin (Zithromax) 500 mg DAILY PO Last administered on 10/11/16 14:39; Admin Dose 500 MG; Start 10/11/16 at 14:00 Khang Ba DO October 11, 2016 17:29
[2016-10-12] VITALS (13 sets, daily range): BP systolic 127–145; BP diastolic 59–70; PULSE 51–66; RESP 17–18
[2016-10-12] MEDS: ALBUTEROL/IPRATROPIUM (NEB) 3 ML AMP HHN SCH ×5 (01:26→16:10)
[2016-10-12] MEDS: ACCU-CHEK XX SCH (02:00)
[2016-10-12 07:36] LABS: ADD SCAN DIFF NO
[2016-10-12 07:49] LABS: BASOPHIL # 0.1 10^3/ul (0.0-0.1); BASOPHILS % 0.6 % (0.0-2.0); EOSINOPHILS # 0.2 10^3/ul (0.0-0.5); EOSINOPHILS % 2.1 % (0.0-7.0); HEMOGLOBIN 12.9 g/dl (14.0-18.0); LYMPHOCYTES # 2.7 10^3/ul (0.8-2.9); MEAN CORPUSCULAR HEMOGLOBIN 30.4 pg (29.0-33.0); MEAN CORPUSCULAR HGB CONC 32.3 g/dl (32.0-37.0); MEAN CORPUSCULAR VOLUME 94.3 fl (82.0-101.0); MEAN PLATELET VOLUME 11.8 fl (7.4-10.4); MONOCYTE # 0.8 10^3/ul (0.3-0.9); MONOCYTES % 8.3 % (0.0-11.0); NEUTROPHIL # 5.3 10^3/ul (1.6-7.5); NEUTROPHILS % 58.7 % (39.0-77.0); PLATELET COUNT 155 10^3/UL (140-415); RED BLOOD COUNT 4.24 10^6/ul (4.70-6.10); RED CELL DISTRIBUTION WIDTH 13.6 % (11.5-14.5); WHITE BLOOD COUNT 9.1 10^3/ul (4.8-10.8)
[2016-10-12] MEDS: INSULIN ASPART [NOVOLOG] 3 ML PEN SC SCH ×3 (08:00→18:05)
[2016-10-12 08:05] LABS: CALCIUM 8.8 mg/dl (8.4-10.2); CREATININE 0.64 mg/dl (0.61-1.24); POTASSIUM 4.1 mmol/L (3.5-5.1)
[2016-10-12] MEDS: AMLODIPINE 5 MG TAB PO SCH (08:26)
[2016-10-12] MEDS: AZITHROMYCIN 250 MG TAB PO SCH (08:27)
[2016-10-12] MEDS: FUROSEMIDE 40 MG INJ IV SCH (08:27)
[2016-10-12] MEDS: FAMOTIDINE 20 MG TAB PO SCH (08:27)
[2016-10-12] MEDS: ENOXAPARIN 40 MG/0.4 ML SYG SC SCH (08:29)
[2016-10-12] MEDS ORDERED: ASPIRIN 81 MG TAB PO SCH (09:00)
[2016-10-12] MEDS ORDERED: LISINOPRIL 5 MG TAB PO SCH (09:00)
--- NOTE | 2016-10-12 11:40 | CONS ---
Date/Time of Note Date/Time of Note DATE: 10/12/16 TIME: 11:38 Assessment/Plan Assessment/Plan Additional Assessment/Plan Assessment recommendations; 1. Patient admitted for mild COPD exacerbation and bronchitis with significant clinical improvement. 2. Likely underlying sleep apnea. Patient can be discharged home on Zithromax to be used for at least 4 more days. He will need to have a sleep study done on outpatient basis for possibility of sleep apnea. And ambulatory pulse oximetry reading is recommended before discharge to ensure patient does not have any hypoxemia. Consultation Date/Type/Reason Admit Date/Time October 09, 2016 at 21:12 Initial Consult Date 10/10/16 Type of Consultation: Pulmonary 24 HR Interval Summary Free Text/Dictation Patient condition is stable. Complains of very minimal shortness of breath. Denies any wheezing but does complain of mild cough with very scant sputum production. General exam; elderly male, awake alert currently in no distress. Exam/Review of Systems Vital Signs Vitals Vital Signs Date Time Temp Pulse Resp B/P Pulse Ox O2 Delivery O2 Flow Rate FiO2 10/12/16 11:26 98.6 54 18 136/63 98 10/12/16 08:32 Nasal Cannula 2.0 10/12/16 05:23 30 Intake and Output 10/11/16 10/11/16 10/12/16 15:00 23:00 07:00 Intake Total 700 ml 400 ml Output Total 900 ml 600 ml Balance -200 ml -200 ml Exam HEENT examination; supple neck, no JVD. No lymphadenopathy. Midline trachea. No thyromegaly. Pharynx is clear. Patient is mostly edentulous. Chest examination; diminished but clear vessel. S1-S2 audible, no murmurs. Regular rhythm. Abdomen examination; protuberant, nontender. No organomegaly. Bowel sounds audible. Extremity examination; no peripheral edema. VETERINARIAN SMALL ANIMAL examination; no focal deficit. Results Result Diagram: 10/12/16 0716 10/12/16 0716 Results 24 hrs Laboratory Tests Test 10/11/16 12:37 10/11/16 17:16 10/11/16 21:09 10/12/16 07:16 Bedside Glucose 135 130 151 White Blood Count 9.1 # Red Blood Count 4.24 L Hemoglobin 12.9 L Hematocrit 40.0 L Mean Corpuscular Volume 94.3 Mean Corpuscular Hemoglobin 30.4 Mean Corpuscular Hemoglobin Concent 32.3 Red Cell Distribution Width 13.6 Platelet Count 155 Mean Platelet Volume 11.8 H Neutrophils % 58.7 Lymphocytes % 30.0 Monocytes % 8.3 Eosinophils % 2.1 Basophils % 0.6 Nucleated Red Blood Cells % 0.0 Neutrophils # 5.3 Lymphocytes # 2.7 Monocytes # 0.8 Eosinophils # 0.2 Basophils # 0.1 Nucleated Red Blood Cells # 0.0 Sodium Level 137 Potassium Level 4.1 Chloride Level 100 Carbon Dioxide Level 30 Anion Gap 11 Blood Urea Nitrogen 26 H Creatinine 0.64 Glucose Level 112 Calcium Level 8.8 Test 10/12/16 08:25 Bedside Glucose 122 Medications Medications Current Medications Ondansetron HCl (Zofran Inj) 4 mg Q6H PRN IV NAUSEA AND/OR VOMITING; Start 10/10 at 02:00 Acetaminophen (Tylenol Tab) 650 mg Q6H PRN PO PAIN LEVEL 1-3 OR FEVER; Start at 02:00 Docusate Sodium (Colace) 100 mg Q12H PRN PO CONSTIPATION; Start 10/10/16 at 02: 00 Bisacodyl (Dulcolax) 5 mg DAILY PRN PO CONSTIPATION; Start 10/10/16 at 02:00 Famotidine (Pepcid) 20 mg Q12 PO Last administered on 10/12/16 08:27; Admin Dose 20 MG; Start 10/10/16 at 02:00 Enoxaparin Sodium (Lovenox) 40 mg DAILY SC Last administered on 10/12/16 08:29 ; Admin Dose 40 MG; Start 10/10/16 at 09:00 Diagnostic Test (Pha) (Accu-Chek) 1 ea 02 XX ; Start 10/11/16 at 02:00 Miscellaneous Information 1 ea NOTE XX ; Start 10/10/16 at 07:00 Glucose (Glutose) 15 gm Q15M PRN PO DECREASED GLUCOSE; Start 10/10/16 at 07:00 Glucose (Glutose) 22.5 gm Q15M PRN PO DECREASED GLUCOSE; Start 10/10/16 at 07:00 Dextrose (D50w Syringe) 25 ml Q15M PRN IV DECREASED GLUCOSE; Start 10/10/16 at 07:00 Dextrose (D50w Syringe) 50 ml Q15M PRN IV DECREASED GLUCOSE; Start 10/10/16 at 07:00 Glucagon (Glucagen) 1 mg Q15M PRN IM DECREASED GLUCOSE; Start 10/10/16 at 07:00 Glucose (Glutose) 15 gm Q15M PRN BUCCAL DECREASED GLUCOSE; Start 10/10/16 at 07: 00 Furosemide (Lasix) 40 mg DAILY IV Last administered on 10/12/16 08:27; Admin Dose 40 MG; Start 10/11/16 at 09:00 Amlodipine Besylate (Norvasc) 5 mg DAILY PO Last administered on 10/12/16 08: 26; Admin Dose 5 MG; Start 10/10/16 at 11:30 Azithromycin (Zithromax) 500 mg DAILY PO Last administered on 10/12/16 08:27; Admin Dose 500 MG; Start 10/11/16 at 14:00 Aspirin (Aspirin) 81 mg DAILY PO Last administered on 10/12/16 09:14; Admin Dose 81 MG; Start 10/12/16 at 09:00 Lisinopril (Zestril) 2.5 mg DAILY PO Last administered on 10/12/16 09:15; Admin Dose 2.5 MG; Start 10/12/16 at 09:00 TERESA BRENNAN October 12, 2016 11:40
[2016-10-12] MEDS ORDERED: AMLO-218 PO (13:43)
[2016-10-12] MEDS ORDERED: IPRA3AMP HHN (13:43)
[2016-10-12] MEDS ORDERED: AZIT250T6 PO (13:43)
[2016-10-12] MEDS ORDERED: ADV25050 INHALATION (13:43)
[2016-10-12] MEDS ORDERED: PRED20TA PO (13:43)
--- NOTE | 2016-10-12 13:45 | CONS ---
Date/Time of Note Date/Time of Note DATE: 10/12/16 TIME: 13:43 Assessment/Plan Assessment/Plan Additional Assessment/Plan Shortness of breath Preserved ejection fraction COPD Mild mitral valve regurgitation Hypertension Obesity -Patient symptoms appear secondary to pulmonary etiology. Tolerating GARRETT inhibitor. No new cardiac orders at the current time. DC planning Consultation Date/Type/Reason Admit Date/Time October 09, 2016 at 21:12 Initial Consult Date 10/10/16 Type of Consultation: cv 24 HR Interval Summary Free Text/Dictation Shortness of breath is the same, denies chest pain, palpitations Exam/Review of Systems Vital Signs Vitals Vital Signs Date Time Temp Pulse Resp B/P Pulse Ox O2 Delivery O2 Flow Rate FiO2 10/12/16 12:15 60 10/12/16 11:26 98.6 18 136/63 98 10/12/16 08:32 Nasal Cannula 2.0 10/12/16 05:23 30 Intake and Output 10/11/16 10/11/16 10/12/16 14:59 22:59 06:59 Intake Total 700 ml 400 ml Output Total 900 ml 600 ml Balance -200 ml -200 ml Exam No apparent distress Constitutional: alert, obese, oriented Head: normocephalic Respiratory: other (Coarse breath sounds bilaterally, no wheezing) Cardiovascular: other (S1-S2 heard), regular rate and rhythm Gastrointestinal: bowel sounds, non-tender, soft Extremities: edema (Trace) Results Result Diagram: 10/12/16 0716 10/12/16 0716 Results 24 hrs Laboratory Tests Test 10/11/16 17:16 10/11/16 21:09 10/12/16 07:16 10/12/16 08:25 Bedside Glucose 130 151 122 White Blood Count 9.1 # Red Blood Count 4.24 L Hemoglobin 12.9 L Hematocrit 40.0 L Mean Corpuscular Volume 94.3 Mean Corpuscular Hemoglobin 30.4 Mean Corpuscular Hemoglobin Concent 32.3 Red Cell Distribution Width 13.6 Platelet Count 155 Mean Platelet Volume 11.8 H Neutrophils % 58.7 Lymphocytes % 30.0 Monocytes % 8.3 Eosinophils % 2.1 Basophils % 0.6 Nucleated Red Blood Cells % 0.0 Neutrophils # 5.3 Lymphocytes # 2.7 Monocytes # 0.8 Eosinophils # 0.2 Basophils # 0.1 Nucleated Red Blood Cells # 0.0 Sodium Level 137 Potassium Level 4.1 Chloride Level 100 Carbon Dioxide Level 30 Anion Gap 11 Blood Urea Nitrogen 26 H Creatinine 0.64 Glucose Level 112 Calcium Level 8.8 Test 10/12/16 12:02 Bedside Glucose 108 Medications Medications Current Medications Ondansetron HCl (Zofran Inj) 4 mg Q6H PRN IV NAUSEA AND/OR VOMITING; Start 10/10 at 02:00 Acetaminophen (Tylenol Tab) 650 mg Q6H PRN PO PAIN LEVEL 1-3 OR FEVER; Start at 02:00 Docusate Sodium (Colace) 100 mg Q12H PRN PO CONSTIPATION; Start 10/10/16 at 02: 00 Bisacodyl (Dulcolax) 5 mg DAILY PRN PO CONSTIPATION; Start 10/10/16 at 02:00 Famotidine (Pepcid) 20 mg Q12 PO Last administered on 10/12/16 08:27; Admin Dose 20 MG; Start 10/10/16 at 02:00 Enoxaparin Sodium (Lovenox) 40 mg DAILY SC Last administered on 10/12/16 08:29 ; Admin Dose 40 MG; Start 10/10/16 at 09:00 Diagnostic Test (Pha) (Accu-Chek) 1 ea 02 XX ; Start 10/11/16 at 02:00 Miscellaneous Information 1 ea NOTE XX ; Start 10/10/16 at 07:00 Glucose (Glutose) 15 gm Q15M PRN PO DECREASED GLUCOSE; Start 10/10/16 at 07:00 Glucose (Glutose) 22.5 gm Q15M PRN PO DECREASED GLUCOSE; Start 10/10/16 at 07:00 Dextrose (D50w Syringe) 25 ml Q15M PRN IV DECREASED GLUCOSE; Start 10/10/16 at 07:00 Dextrose (D50w Syringe) 50 ml Q15M PRN IV DECREASED GLUCOSE; Start 10/10/16 at 07:00 Glucagon (Glucagen) 1 mg Q15M PRN IM DECREASED GLUCOSE; Start 10/10/16 at 07:00 Glucose (Glutose) 15 gm Q15M PRN BUCCAL DECREASED GLUCOSE; Start 10/10/16 at 07: 00 Furosemide (Lasix) 40 mg DAILY IV Last administered on 10/12/16 08:27; Admin Dose 40 MG; Start 10/11/16 at 09:00 Amlodipine Besylate (Norvasc) 5 mg DAILY PO Last administered on 10/12/16 08: 26; Admin Dose 5 MG; Start 10/10/16 at 11:30 Azithromycin (Zithromax) 500 mg DAILY PO Last administered on 10/12/16 08:27; Admin Dose 500 MG; Start 10/11/16 at 14:00 Aspirin (Aspirin) 81 mg DAILY PO Last administered on 10/12/16 09:14; Admin Dose 81 MG; Start 10/12/16 at 09:00 Lisinopril (Zestril) 2.5 mg DAILY PO Last administered on 10/12/16 09:15; Admin Dose 2.5 MG; Start 10/12/16 at 09:00 Prednisone (Prednisone) 40 mg ONCE ONCE PO ; Start 10/12/16 at 14:00; Stop 03/21 at 14:01 Khang Ba DO October 12, 2016 13:45
[2016-10-12] MEDS ORDERED: predniSONE 20 MG TAB PO ONE (14:00)
--- NOTE | 2016-10-12 14:30 | DS ---
DATE OF ADMISSION: 10/09/2016 DATE OF DISCHARGE: 10/12/2016 DISCHARGE DIAGNOSES: 1. Chronic obstructive pulmonary disease exacerbation. The patient continues to require O2 and has a difficult time ambulating. Will discharge to acute rehabilitation until the patient is ambulatin g well on his own. The patient was started on Advair, will also be given a short course of predniso ne p.o. 2. Obesity with likely obstructive sleep apnea and prediabetes. The patient needs an outpatient sl eep study. Lifestyle changes have been advised. 3. Diastolic heart failure, currently compensated. The patient had an echo that showed a normal EF , but stage II diastolic dysfunction. 4. Newly diagnosed hypertension, now controlled with Norvasc, will be discharged with Norvasc 10 mg daily. HOSPITAL COURSE: The patient is a 71-year-old male with a history of obesity, possible COPD, hypert ension, dyslipidemia. The patient is on no home medications. The patient presents with worsening s hortness of breath 3 days prior to admission. The patient was diagnosed with chronic obstructive pu lmonary disease exacerbation. He was seen by cardiology, pulmonology during this hospitalization. He did have a 2-D echo that showed a normal EF, stage II diastolic heart failure. The patient's stepan st x-ray and ABG were within normal limits. The patient was requiring supplemental oxygen, was havi ng a difficult time ambulating. No he does not use oxygen at baseline. The patient was improving s lightly, but he was still dependent upon home O2, and still having trouble ambulating, so the patien t was appropriate for a short course of acute rehabilitation. The patient was agreeable to discharg e to acute rehabilitation. Of note, the patient was not on any home medications, and his blood pres sure was controlled with Norvasc. It was decided that the patient will be started on prednisone p.o . for a few days. He was given azithromycin during his hospitalization. It was also felt that the patient would benefit from starting Advair. On the day of discharge, the patient's vitals, labs, an d physical exam were stable. He had no acute complaints. Questions were answered. CONDITION ON DISCHARGE: Stable. DISPOSITION: To jail facility. MEDICATIONS: The patient was given new prescriptions for: 1. Norvasc 10 mg daily. 2. Azithromycin 500 mg daily for 4 days. 3. DuoNeb p.r.n. 4. Prednisone 40 mg daily for 4 days. 5. Advair 250/50 one inhalation b.i.d. The patient has no reported home medications. FOLLOWUP: The patient is to follow up with physicians at the jail facility. Greater than 30 minutes were spent coordinating discharge of patient. Dictated By: JUDITH LOUIE MD BS/CLIFF Conf#: [id number] DID#: [id number]
[2016-10-13] MEDS ORDERED: FUROSEMIDE 20 MG TAB PO SCH (09:00)
[2016-10-13] MEDS ORDERED: LISINOPRIL 5 MG TAB PO SCH (09:00)
== END 2016-10-12 19:55 | DRG 191 ==
LOC: UNDOADMIN 21:12 → MS4 21:12
PROVIDERS: ADMIT Internal Medicine; ATTEND Internal Medicine
DX: J44.1 Chronic obstructive pulmonary disease with (acute) exacerbation (principal); I50.32 Chronic diastolic (congestive) heart failure; I11.0 Hypertensive heart disease with heart failure; Z99.81 Dependence on supplemental oxygen; E11.9 Type 2 diabetes mellitus without complications; N40.0 Benign prostatic hyperplasia without lower urinary tract symptoms; G47.33 Obstructive sleep apnea (adult) (pediatric); J20.9 Acute bronchitis, unspecified; J44.0 Chronic obstructive pulmonary disease with (acute) lower respiratory infection; E66.9 Obesity, unspecified; Z68.38 Body mass index [BMI] 38.0-38.9, adult; Z71.3 Dietary counseling and surveillance; Z79.4 Long term (current) use of insulin; Z87.891 Personal history of nicotine dependence
CPT/HCPCS: 36600; 71010; 80048; 80053; 80061; 82550; 82553; 82803; 82962; 83036; 83735; 84436; 84443; 84479; 84484; 85025; 93005; 93306; 94640; 94660; J1650; J1815; J1940; J7512